=== PATIENT | female | born 1945 | race Caucasian/White ===

== ENCOUNTER 2021-12-06 15:30 | Outpatient (RCR) | payer MEDICARE, BC, SELFPAY ==
--- NOTE | 2022-01-24 15:34 | PC.NURSE ---
Addendum entered by Ngozi Musa, RN 01/25/22 08:35: [employer] Operator called patient and she notes that since Nida will be staying in [place], she will stay here. Original Note: Received a call from [facility] reporting that pt is going to transfer care to Dr. Schwartz for oncology follow-up. They requested that we fax the most recent MD note, we will see that this is done.
--- NOTE | 2022-06-14 14:27 | ONC.NURNOTE ---
Vice Chair received call from Deirdre requested annual follow up appt- made with Dr Roldan per patient Deirdre with questions about labs and plan for next PET Scan medical writer informed Deirdre (per nursing note) that Dr Alva will see Deirdre first and then decide on ordering a PET Scan
== END 2022-09-13 23:59 | disposition home or self-care (01) ==
PROVIDERS: PCP Family Medicine; Visit Provider Orthopaedic Surgery Orthopaedic Surgery of the Spine
DX: R26.89 Other abnormalities of gait and mobility (principal); Z51.89 Encounter for other specified aftercare
CPT/HCPCS: 97110; 97112; 97140; 97162

== ENCOUNTER 2022-04-02 13:30 | Outpatient (RCR) | payer MEDICARE, BC, SELFPAY | END 2022-04-09 16:48 | disposition home or self-care (01) | PROVIDERS: PCP Family Medicine; Visit Provider Family Medicine | DX: Z98.890 Other specified postprocedural states (principal); Z51.89 Encounter for other specified aftercare | CPT/HCPCS: 97110; 97161 ==

== ENCOUNTER 2022-05-04 12:41 | Outpatient (CLI) | payer MEDICARE, BC, SELFPAY ==
--- NOTE | 2022-05-04 13:00 | CRLHL7_ITS ---
For Patients: As a result of the Century Cures Act, medical imaging exams and procedure reports are released immediately into your electronic medical record. You may view this report before your referring provider. If you have questions, please contact your health care provider. INDICATION: Low back pain. Leg pain. TECHNIQUE: Multiplanar multisequence noncontrast MR images acquired through the lumbar spine. COMPARISON: Lumbar spine radiographs 10/02/2021. FINDINGS: Postsurgical changes of posterior instrument fusion from L3 through L5 with interbody fusion at L3-4. Susceptibility artifact secondary to surgical hardware. Exaggerated lumbar lordosis. Mild rightward lumbar curvature. Extensive marrow edema throughout the L5 vertebral body is likely secondary to a mild recent or subacute compression fracture. A fluid-filled cleft is visualized along the L5 superior endplate. No associated retropulsion. Normal conus terminates at L1-2. T12-L1: Mild degeneration. Shallow posterior disc bulge. No spinal canal or neural foraminal narrowing. L1-2: Mild retrolisthesis. Moderate disc degeneration disc height loss. Segmental disc bulge. Mild facet arthropathy. Mild spinal canal narrowing. Ywcc-sf-qfipnkte left and mild right neural foraminal narrowing. L2-3: Postsurgical changes of laminectomy. Moderate disc degeneration. Mild disc height loss. Shallow posterior disc bulge. No spinal canal narrowing. Low-grade neural foraminal narrowing. L3-4: Postsurgical changes spinal fusion and laminectomy. Grade 1 anterolisthesis. No spinal canal narrowing. The left neural foramen is suboptimally evaluated, though there is likely low-grade left neural foraminal narrowing. Mild right neural foraminal narrowing. L4-5: Postsurgical changes of spinal fusion and laminectomy. Moderate spinal canal narrowing. Suggested moderate left without right neural foraminal narrowing. L5-S1: Advanced disc degeneration and disc height loss. Disc degenerate vertebral body edema. Posterior disc bulging and endplate spondylitic ridging. Kqih-vg-vugcczqa facet arthropathy. Moderate facet arthropathy. No spinal canal narrowing. Ggyw-vs-xuqiizsy right without left neural foraminal narrowing. Sacroiliac joint degenerative changes. Multiple T2 hyperintense lesions in the kidneys, most typical for renal cysts. IMPRESSION: 1. Postsurgical changes of posterior instrumented fusion from L3 through L5, interbody fusion at L3-4, and laminectomy from L2-3 through L4-5. 2. Extensive edema throughout the L5 vertebral body is likely secondary to a mild recent or subacute compression fracture. A fluid-filled cleft is visualized along the L5 superior endplate. There is no retropulsion. 3. At L4-5, moderate spinal canal narrowing. Suggested moderate left neural foraminal narrowing. Dictated by Aguila Mcmullen MD @ 05/04/2022 6:40:49 PM (Electronically Signed)
== END 2022-05-04 12:42 | disposition home or self-care (01) ==
LOC: MRI 12:46
PROVIDERS: PCP Family Medicine; Visit Provider Orthopaedic Surgery Orthopaedic Surgery of the Spine
DX: M54.50 Low back pain, unspecified (principal); M51.26 Other intervertebral disc displacement, lumbar region
CPT/HCPCS: 72148

== ENCOUNTER 2022-07-05 13:13 | Outpatient (RCR) | payer MEDICARE, BC, SELFPAY | END 2023-01-01 23:59 | disposition home or self-care (01) | LOC: CCIC 13:13 | PROVIDERS: PCP Family Medicine; Visit Provider Internal Medicine Hematology & Oncology | DX: C50.912 Malignant neoplasm of unspecified site of left female breast (principal); Z17.0 Estrogen receptor positive status [ER+]; Z79.811 Long term (current) use of aromatase inhibitors | CPT/HCPCS: 99212; 99214 ==

== ENCOUNTER 2022-10-31 06:07 | Day surgery (SDC) | payer MEDICARE, BC, SELFPAY ==
[2022-10-31] MEDS: KETOROLAC OPHTH 0.5% 1 DROP EYE-LEFT ×3 (06:25→06:40)
[2022-10-31] MEDS: TETRACAINE 0.5% OPHTH 1 DROP EYE-LEFT ×2 (06:25→06:35)
[2022-10-31 06:32] VITALS: BP 138/73; PULSE 71; RESP 16; TEMP 36.5; O2SAT 95
[2022-10-31] MEDS: SODIUM CHLORIDE 0.9 % (FLUSH) 10 ML SYRINGE IVF (06:35)
[2022-10-31 06:50] VITALS: BMI 39.4
--- NOTE | 2022-10-31 06:59 | SUR.PREOP ---
The eye drops brought by the patient (Ketorolac and Prednisolone) are examined and I have determined they are labeled by the patient's pharmacy for this patient as prescribed by the surgeon. The bottles are intact, recently obtained and appear to be correct.
--- NOTE | 2022-10-31 07:08 | W.ANESCHARGE ---
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
[2022-10-31] MEDS: TETRACAINE 0.5% OPHTH 2 DROP EYE-LEFT (07:19)
[2022-10-31] MEDS: BALANCED SALT IRRIG SOLN 15 ML EYE-LEFT (07:24)
--- NOTE | 2022-10-31 07:29 | W.ANESCHARGE ---
Anesthesia Charges Start Date/Time Anesthesia Start Date: 10/31/22 Anesthesia Start Time: 07:15 Stop Date/Time Anesthesia Stop Date: 10/31/22 Anesthesia Stop Time: 07:51 Summary Extremes of Age - Over 70 or under 1: MDA
[2022-10-31 07:47] VITALS: BP 132/73; PULSE 63; RESP 16; TEMP 36.7; O2SAT 97
--- NOTE | 2022-10-31 10:10 | P.OPTPRC_ITS ---
Procedure Note Date of procedure: 10/31/22 Will [facility] bill your pro fee for this procedure?: Yes Procedure Description: SURGEON: Leilani Hoskins MD PREOPERATIVE DIAGNOSIS: Nuclear sclerotic cataract, left eye. POSTOPERATIVE DIAGNOSIS: Nuclear sclerotic cataract, left eye. NAME OF OPERATION: Phacoemulsification of cataract with posterior chamber intraocular lens implantation in the left eye. ANESTHESIA: Topical. ESTIMATED BLOOD LOSS: Less than 2 cc. COMPLICATIONS: None. PATHOLOGY SPECIMEN: None. INDICATIONS: See consult note for details. The risks, benefits and alternatives of the procedure were explained to the patient, who elected to proceed and signed informed consent to do so. PROCEDURE: The patient was brought to the pre-holding area where the left eye was identified as the operative eye. I placed my initials above this eye. The patient received eye drops consisting of 0.5% tetracaine, 1% tropicamide, 10% phenylephrine, and 0.5% ketorolac. The patient was then brought to the operating room where the left eye was again identified as the operative eye. The eye was prepped with Betadine and draped in the usual sterile ophthalmic fashion. A #15 super-sharp blade was used to create a paracentesis site. 1% non-preserved intracameral lidocaine was injected into the anterior chamber. Endocoat was injected into the anterior chamber. A 2.4 mm keratome was used to create a three-plane self-sealing incision 1 mm anterior to the temporal limbus. A cystotome was used to create an anterior capsular leaflet. The Utrata forceps were used to extend this to form a continuous curvilinear capsulorrhexis. Hydrodissection was performed. The cataract was removed with phacoemulsification using the hzcggu-ltr-vzzxjki technique. The irrigation and aspiration tip was used to remove the remaining cortex. Healon was injected into the capsular bag. An TOMER ZCB00 intraocular lens of 21.5 diopters was injected into the capsular bag. The irrigation and aspiration tip was used to remove the remaining viscoelastic. Balanced salt solution on a cannula was used to hydrate the wound, and the wound was found to be watertight. The pupil was noted to be round. DISPOSITION: The patient was taken to the recovery room and discharged to home in stable condition. The patient was instructed to call me or go to the emergency department with any sudden change, including dramatic loss of vision, severe pain in the eye or eyebrow region, nausea, or vomiting. The patient will follow up in the clinic tomorrow morning.
== END 2022-10-31 08:22 | disposition home or self-care (01) ==
LOC: OR 06:08
PROVIDERS: PCP Family Medicine; Visit Provider Ophthalmology
PROC: (CPT 66984; principal; 2022-10-31 06:15)
DX: H25.12 Age-related nuclear cataract, left eye (principal)
CPT/HCPCS: 66984; 00142; 99100; A9270; J2250; J3010; V2632

== ENCOUNTER 2022-11-14 06:11 | Day surgery (SDC) | payer MEDICARE, BC, SELFPAY ==
--- OUTSIDE RECORDS SUMMARY | 2022-11-14 06:14 | XMS_ITS | Continuity of Care Document ---
Author Name Unknown Organization [facility] Address [address] [place] [address] Phone Care Team Providers Care Brickmason Name Role Phone Maris MELISSA, PhD, Fidel Unavailable Unavai lable Allergies, Adverse Reactions, Alerts Substance Reaction Status Criticality sulfanilamide Active No Information morphine Active No Information Medications Medication Instructions Dosage Effective Dates (start - stop) Status Comments TURMERIC (unknown strength) Not Available - Active ANASTROZOLE (unknown strength) Not Available - Active TYLENOL (unknown strength) Not Available - Active ASPIRIN EC (unknown strength) Not Available - Active HYDROCHLOROTHIAZIDE (unknown strength) Not Available - Active TIROSINT (unknown strength) Not Available - Active VITAMIN D3 (unknown strength) Not Available - Active ALOE VERA (unknown strength) Not Available - Active Procedures Procedure Date Office/Outpatient Visit,Est, Mod 2022 OFFICE/OUTPATIENT VISIT EST Phone Office/Outpatient Visit,Est, Mod 2022 Postop Followup Visit Postop Followup Visit POSTOP FOLLOW-UP VISIT Telephone 2021 POSTOP FOLLOW-UP VISIT Telephone 2021 TLIF - Includes PSF at the same level - PA ESPINOZA FACETC/FRMT ARTHRD LUM 1 PSF - Additional Level(s) - PA Lami, Facetectomy/Foraminotomy, Lumbar ( Stenosis) Lami, Facetectomy/Foraminotomy - Additio nal Level(s) - PA Posterior Instrumentation, 3-6 Segments - PA PEEK/ Cage/ Implant, For Interbody Fusio n - PA TLIF - Includes PSF at the same level Ma ESPINOZA FACETC/FRMT ARTHRD LUM 1 PSF - Additional Level(s) Lami, Facetectomy/Foraminotomy, Lumbar ( Stenosis) Lami, Facetectomy/Foraminotomy - Additio nal Level(s) Posterior Instrumentation, 3-6 Segments PEEK/ Cage/ Implant, For Interbody Fusio n Office/Outpatient Visit,Est, Mod 2021 Office/Outpatient Visit,New, High Office/Outpatient Visit,New, Mod 2012 Advance Directives Directive Yes / No Effective Date File Name No Information Encounters Encounter Description Practice Location Reason(s) For Visit Diagnoses Date Provider Providers Copied on Encounter Office/Outpat ient Visit,Est, Mod [facility], [address] [place] [address], [id number], [place] tel:[phone] [facility] Arthrodesis status 3 Maris Parra. [facility] [place], [address] [place] [address], [address], [place]. tel:[phone] Referring Provider: Jh Jenkins [facility] [address], [address]. tel:[phone] OFFICE/OUTPAT IENT VISIT EST Phone [facility], [address] [place] [address], [id number], [place] tel:[phone] [facility] - [place] No Information 3 Maris Parra. [facility] [place], [address] [place] [address], [id number], [place]. tel:[phone] Referring Provider: Jh Jenkins [employer] [address] [place] [address], [address]. tel:[phone] Office/Outpat ient Visit,Est, Mod [facility], [address], [place], [id number], [place] tel:[phone] [facility] - [facility] Arthrodesis status 3 Maris Parra. [facility], [address], [place], [address], [place]. tel:[phone] Referring Provider: Jh Jenkins [address], [address]. tel:[phone] [facility], [address], [place], [place], [id number], [place] tel:[phone] [facility] No Information 2 Maris Parra. [facility] [place], [address], [place], [address], [place]. [phone] Referring Provider: Jh Jenkins [address], [address]. tel:[phone] [facility], [address], [place], [place], [id number], [place] tel:[phone] [facility] - [facility] Encounter for other specified surgical aftercare 2 Maris Parra. [facility] [place], [address], [place], [address], [place]. tel:[phone] Referring Provider: Jh Jenkins [facility] [address] [place], [address]. tel:[phone] [facility], [address], [place], [place], [id number], [place] tel:[phone] [facility] No Information 2 Morgan Ray. [facility] [place], [address], [place], [id number] , [place]. tel:[phone] Referring Provider: Jh Jenkins [facility] [address] [place], [address]. tel:[phone] [facility], [address] [place] [address], [id number], [place] tel:[phone] [facility] No Information 0 2 Morgan Ray. [facility], [address], [place], [place], [id number] , [place]. [phone] Referring Provider: Jh Jenkins [facility] [address] [place], [address]. tel:[phone] [facility], [address] [place] [address], [id number], [place] tel:[phone] [facility] No Information 2 Morgan Ray. [facility], [address], [place], [place], [id number] , [place]. [phone] Referring Provider: Jh Jenkins [address], [address]. tel:[phone] [facility], [address] [place] [address], [id number], [place] tel:[phone] [facility] No Information 2 Maris Parra. [facility] [place], [address], [place], [address], [place]. [phone] Referring Provider: Jh Jenkins [address], [address]. [phone] Office/Outpat ient Visit,Est, Mod [facility], [address] [place] [address], [id number], [place] tel:[phone] [facility] Spinal stenosis, cervical region Apr-0 2 Maris Parra. [facility] [place], [address], [place], [address], [place]. tel:[phone] Referring Provider: Jh Jenkins [address], [address]. tel:[phone] Office/Outpat ient Visit,New, High [facility], [address] [place] [address], [id number], [place] tel:[phone] [facility] Spinal stenosis, lumbar region with neurogenic claudication Apr-0 2 Mora Cory. [facility], [address], [place], [place], [id number] , [place]. tel:[phone] Referring Provider: Pam Paulson, [facility] [address], [place], [address]. tel:[phone] [facility], [address], [place], [place], [id number], [place] tel:[phone] [facility] Spinal stenosis, lumbar region with neurogenic claudication 2 Maris Fidel. [facility] [place], [address], [place], [address], [place]. tel:[phone] Office/Outpat ient Visit,[facility] [place], [address], [place], [address], [place] tel:[phone] [facility] ARTHRODESIS STATUS 3 Jace Rendon. [facility] [place], [address], [address], [place], [place], [id number] , [place]. tel:[phone] Referring Provider: Albert Mendoza, [facility] [address] , [place], [address]. tel:[phone] Family History Family Member Type Diagnosis Age At Onset Problem (finding) Problem (finding) Problem (finding) Problem (finding) Problem (finding) Problem (finding) Problem (finding) Payers Payer name Insurance type Covered green party ID Authoriza tion(s) [facility] [id number] Medicare [facility] [id number] 1 Social History Type Description Quantity Date Captured Comments Alcohol Use Details Unknown Caffeine Use Details Unknown Tobacco Use Status No Information Smoking Status No Information Sex Female Vital Signs Date / Time: Height Weight BMI Pulse Rate Blood Pressure Temperature Respiratory Rate Body Surface Area Head Circumference Head Circ. Percentile Wt./Renato. Percentile BMI percentile Pulse Ox Inhaled Ox 10:41 AM 62.50 in 105.687 kg (233.00 lbs) 41.9 4 kg/m eter (2) Chief Complaint And Reason For Visit No Information Reason For Referral Reason For Referral No Information History Of Present Illness Encounter Date Complaint History Of Prese nt Illness No Information Functional Status Date Functional Assessmen t No Information Instructions Date Instruction Additional Infor mation No Information Assessments Type Assessment Date No Information Patient Care Teams Name Effective Dates (start - stop) Status Members No Information
--- OUTSIDE RECORDS SUMMARY | 2022-11-14 06:15 | XMS_ITS | Continuity of Care Document ---
Author Name Unknown Organization [facility] Address [address] [place] [address] Phone Care Team Providers Care Director Geothermal Operations Name Role Phone Maris MELISSA, PhD, Fidel [...] Office/Outpat ient Visit,Est, Mod [facility], [address] [place] [address], [id number], [place] tel:[phone] [facility] Arthrodesis status 3 Maris Parra. [facility] [place], [address] [place] [address], [address], [place]. tel:[phone] Referring Provider: [facility] [address], [address]. tel:[phone] OFFICE/OUTPAT IENT VISIT EST Phone [facility], [address] [place] [address], [id number], [place] tel:[phone] [facility] [place] No Information 3 Maris Parra. [facility] [place], [address] [place] [address], [address], [place]. tel:[phone] Referring Provider: Jh Jenkins [employer] [address] [place] [address], [address]. tel:[phone] Office/Outpat ient Visit,Est, Mod [facility], [address], [place], [place], [id number], [place] tel:[phone] [facility] Arthrodesis status 3 Maris Parra. [facility], [address], [place], [address], [place]. tel:[phone] Referring Provider: Jh Jenkins [address], [address]. tel:[phone] [facility], [address], [place], [place], [id number], [place] tel:[phone] [facility] No Information 2 Maris Parra. [facility] [place], [address], [place], [address], [place]. [phone] Referring Provider: Jh Jenkins [address], [address]. tel:[phone] [facility], [address], [place], [place], [id number], [place] tel:[phone] [facility] Encounter for other specified surgical aftercare 2 Maris Parra. [facility] [place], [address], [place], [address], [place]. tel:[phone] Referring Provider: Jh Jenkins [facility] [address] [place], [address]. tel:[phone] [facility], [address], [place], [place], [id number], [place] tel:[phone] [facility] No Information 2 Morgan Ray. [facility] [place], [address], [place], [id number] , [place]. tel:[phone] Referring Provider: Jh Jenkins [facility] [address] [place], [address]. tel:[phone] [facility], [address] [place] [address], [id number], [place] tel:[phone] [facility] No Information 0 2 Morgan Ray. [facility], [address], [place], [place], [id number] , [place]. [phone] Referring Provider: Jh Jenkins [facility] [address] [place], [address]. tel:[phone] [facility], [address] [place] [address], [id number], [place] tel:[phone] [facility] No Information 2 Morgan Ray. [facility], [address], [place], [place], [id number] , [place]. [phone] Referring Provider: Jh Jenkins [address], [address]. tel:[phone] [facility], [address] [place] [address], [id number], [place] tel:[phone] [facility] No Information 2 Maris Parra. [facility] [place], [address], [place], [address], [place]. [phone] Referring Provider: Jh Jenkins [address], [address]. [phone] Office/Outpat ient Visit,Est, Mod [facility], [address] [place] [address], [id number], [place] tel:[phone] [facility] Spinal stenosis, cervical region Apr-0 2 Maris Parra. [facility] [place], [address], [place], [address], [place]. tel:[phone] Referring Provider: Jh Jenkins [address], [address]. tel:[phone] Office/Outpat ient Visit,New, High [facility], [address] [place] [address], [id number], [place] tel:[phone] [facility] Spinal stenosis, lumbar region with neurogenic claudication Apr-0 2 Mora Cory. [facility], [address], [place], [place], [id number] , [place]. tel:[phone] Referring Provider: Pam Paulson, [facility] [address], [place], [address]. tel:[phone] [facility], [address], [place], [place], [id number], [place] tel:[phone] [facility] Spinal stenosis, lumbar region with neurogenic claudication 2 Maris Fidel. [facility] [place], [address], [place], [address], [place]. tel:[phone] Office/Outpat ient Visit,[facility], [facility] Z [facility] [place], [address], [place], [address], [place] tel:[phone] [facility] ARTHRODESIS STATUS 3 Jace Rendon. [facility] [place], [address], [address], [place], [place], [id number] , [place]. tel:[phone] Referring Provider: Albert Mendoza, [facility] [address] , [place], [address]. tel:[phone] Family History Family Member Type Diagnosis Age At Onset Problem (finding) Problem (finding) Problem (finding) Problem (finding) Problem (finding) Problem (finding) Problem (finding) Payers Payer name Insurance type Covered republican ID Authoriza tion(s) [facility] [id number] Medicare [facility] [id number] 1 Social History Type Description Quantity Date [...]
[2022-11-14] MEDS: TETRACAINE 0.5% OPHTH 1 DROP EYE-RIGHT ×2 (06:35→06:42)
[2022-11-14] MEDS: KETOROLAC OPHTH 0.5% 1 DROP EYE-RIGHT ×3 (06:36→06:54)
[2022-11-14 07:00] VITALS: BP 142/75; PULSE 69; RESP 16; TEMP 36.8; O2SAT 96
[2022-11-14] MEDS: TETRACAINE 0.5% OPHTH 2 DROP EYE-RIGHT (07:21)
[2022-11-14] MEDS: BALANCED SALT IRRIG SOLN 15 ML EYE-RIGHT (07:26)
--- NOTE | 2022-11-14 07:27 | P.ANES_ITS ---
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
[2022-11-14 07:45] VITALS: BP 131/75; PULSE 69; RESP 16; TEMP 37; O2SAT 98
[2022-11-14] MEDS: SODIUM CHLORIDE 0.9 % (FLUSH) 10 ML SYRINGE IVF (08:00)
--- NOTE | 2022-11-14 09:26 | P.OPTPRC_ITS ---
Procedure Note Date of procedure: 11/14/22 Will [facility] bill your pro fee for this procedure?: Yes Procedure Description: SURGEON: Leilani Hoskins MD PREOPERATIVE DIAGNOSIS: Nuclear sclerotic cataract, right eye. POSTOPERATIVE DIAGNOSIS: Nuclear sclerotic cataract, right eye. NAME OF OPERATION: Phacoemulsification of cataract with posterior chamber intraocular lens implantation in the right eye. ANESTHESIA: Topical. ESTIMATED BLOOD LOSS: Less than 2 cc. COMPLICATIONS: None. PATHOLOGY SPECIMEN: None. INDICATIONS: See consult note for details. The risks, benefits and alternatives of the procedure were explained to the patient, who elected to proceed and signed informed consent to do so. PROCEDURE: The patient was brought to the pre-holding area where the right eye was identified as the operative eye. I placed my initials above this eye. The patient received eye drops consisting of 0.5% tetracaine, 1% tropicamide, 10% phenylephrine, and 0.5% ketorolac. The patient was then brought to the operating room where the right eye was again identified as the operative eye. The eye was prepped with Betadine and draped in the usual sterile ophthalmic fashion. A #15 super-sharp blade was used to create a paracentesis site. 1% non-preserved intracameral lidocaine was injected into the anterior chamber. Endocoat was injected into the anterior chamber. A 2.4 mm keratome was used to create a three-plane self-sealing incision 1 mm anterior to the temporal limbus. A cystotome was used to create an anterior capsular leaflet. The Utrata forceps were used to extend this to form a continuous curvilinear capsulorrhexis. Hydrodissection was performed. The cataract was removed with phacoemulsification using the booioc-esj-rmajgfk technique. The irrigation and aspiration tip was used to remove the remaining cortex. Healon was injected into the capsular bag. An TOMER ZCB00 intraocular lens of 21.0 diopters was injected into the capsular bag. The irrigation and aspiration tip was used to remove the remaining viscoelastic. Balanced salt solution on a cannula was used to hydrate the wound, and the wound was found to be watertight. The pupil was noted to be round. DISPOSITION: The patient was taken to the recovery room and discharged to home in stable condition. The patient was instructed to call me or go to the emergency department with any sudden change, including dramatic loss of vision, severe pain in the eye or eyebrow region, nausea, or vomiting. The patient will follow up in the clinic tomorrow morning.
--- NOTE | 2022-11-14 11:33 | W.ANESCHARGE ---
Anesthesia Charges Start Date/Time Anesthesia Start Date: 11/14/22 Anesthesia Start Time: 07:15 Stop Date/Time Anesthesia Stop Date: 11/14/22 Anesthesia Stop Time: 07:49 Summary Extremes of Age - Over 70 or under 1: MDA
== END 2022-11-14 08:12 | disposition home or self-care (01) ==
PROVIDERS: PCP Family Medicine; Visit Provider Ophthalmology
PROC: (CPT 66984; principal; 2022-11-14 06:15)
DX: H25.11 Age-related nuclear cataract, right eye (principal)
CPT/HCPCS: 66984; 00142; 99100; A9270; J2250; J3010; V2632

== ENCOUNTER 2023-01-09 13:24 | Outpatient (CLI) | payer MEDICARE, BC, SELFPAY ==
--- OUTSIDE RECORDS SUMMARY | 2023-01-09 13:27 | XMS_ITS | Continuity of Care Document ---
Author Name Unknown Organization [facility] Address [address] [place] [address] Phone Care Team Providers Care Dean Of Graduate Studies Name Role Phone Maris MELISSA, PhD, Fidel [...] Office/Outpat ient Visit,Est, Mod [facility], [address] [place] [address], [id number], [place] tel:[phone] [facility] - [facility] Arthrodesis status 3 Maris Parra. [facility], [address] [place] [address], [address], [place]. tel:[phone] Referring Provider: [facility] [address], [address]. tel:[phone] OFFICE/OUTPAT IENT VISIT EST Phone [facility], [address] [place] [address], [id number], [place] tel:[phone] [facility] - [place] No Information 3 Maris Parra. [facility], [address] [place] [address], [address], [place]. tel:[phone] Referring Provider: Jh Jenkins [facility] [address] [place] [address], [address]. tel:[phone] Office/Outpat ient Visit,Est, Mod [facility], [address], [place], [place], [id number], [place] tel:[phone] [facility] - [facility] Arthrodesis status 3 Maris Parra. [facility], [address], [place], [address], [place]. tel:[phone] Referring Provider: Jh Jenkins [address], [address]. tel:[phone] [facility], [address], [place], [place], [id number], [place] tel:[phone] [facility] No Information 2 Maris Parra. [facility], [address], [place], [address], [place]. [phone] Referring Provider: Jh Jenkins [address], [address]. tel:[phone] [facility], [address], [place], [place], [id number], [place] tel:[phone] [facility] - [facility] Encounter for other specified surgical aftercare 2 Maris Parra. [facility], [address], [place], [address], [place]. tel:[phone] Referring Provider: Jh Jenkins [facility] [address] [place], [address]. tel:[phone] [facility], [address], [place], [place], [id number], [place] tel:[phone] [facility] No Information 2 Morgan Ray. [facility], [address], [place], [id number] , [place]. tel:[phone] Referring Provider: Jh Jenkins [facility] [address] [place], [address]. tel:[phone] [facility], [address] [place] [address], [id number], [place] tel:[phone] [facility] No Information 0 2 Morgan Ray. [facility], [address], [place], [place], [id number] , [place]. [phone] Referring Provider: Jh Jenkins [facility] [address] [place], [address]. tel:[phone] [facility], [address] [place] [address], [id number], [place] tel:[phone] [facility] No Information 2 Morgan Ray. [facility], [address], [place], [place], [id number] , [place]. [phone] Referring Provider: Jh Jenkins [address], [address]. tel:[phone] [facility], [address] [place] [address], [id number], [place] tel:[phone] [facility] No Information 2 Maris Parra. [facility], [address], [place], [address], [place]. [phone] Referring Provider: Jh Jenkins [address], [address]. [phone] Office/Outpat ient Visit,Est, Mod [facility], [address] [place] [address], [id number], [place] tel:[phone] [facility] Spinal stenosis, cervical region Apr-0 2 Maris Parra. [facility], [address], [place], [address], [place]. tel:[phone] Referring Provider: Jh Jenkins [address], [address]. tel:[phone] Office/Outpat ient Visit,New, High [facility], [address] [place] [address], [id number], [place] tel:[phone] [facility] Spinal stenosis, lumbar region with neurogenic claudication Apr-0 2 Mora Cory. [facility], [address], [place], [place], [id number] , [place]. tel:[phone] Referring Provider: Pam Paulson, [facility] [address], [place], [address]. tel:[phone] [facility], [address], [place], [place], [id number], [place] tel:[phone] [facility] Spinal stenosis, lumbar region with neurogenic claudication 2 Maris Fidel. [facility], [address], [place], [address], [place]. tel:[phone] Office/Outpat ient Visit,[facility], [facility], [address], [place], [address], [place] tel:[phone] [facility] ARTHRODESIS STATUS 3 Jace Rendon. [facility], [address], [place], [place], [id number] , [place]. tel:[phone] Referring Provider: Albert Mendoza, [facility] [address] , [place], [address]. tel:[phone] Family History Family Member Type Diagnosis Age At Onset Problem (finding) Problem (finding) Problem (finding) Problem (finding) Problem (finding) Problem (finding) Problem (finding) Payers Payer name Insurance type Covered alliance party ID Authoriza tion(s) [facility] [id number] Medicare [facility] [id number] 1 Social History Type Description Quantity Date [...]
--- NOTE | 2023-01-09 13:30 | CRLHL7_ITS ---
For Patients: As a result of the Century Cures Act, medical imaging exams and procedure reports are released immediately into your electronic medical record. You may view this report before your referring provider. If you have questions, please contact your health care provider. DXA BONE MINERAL DENSITY STUDY Reason for exam: Long-term use aromatase inhibitors. Current height (in): 64. Weight (lb): 225. Menopause age: 41. Ethnicity: White. 1. Have you had a previous hip or vertebral fracture? No. 2. Have you had any fractures during your adult life which did not result from significant trauma (e.g., auto accident)? No. 3. Did either of your parents have a hip fracture? No. 4. Do you smoke? No. 5. Have you ever taken Glucocorticoids? No. 6. Do you have rheumatoid arthritis? No. 7. Do you have secondary osteoporosis? No. 8. Do you drink 3 or more alcoholic drinks per day? No. 9. Are you being treated for osteoporosis? No. 10. Have you ever taken any of the following medications: Actonel, Evista, Fosamax, Miacalcin, Reclast, Boniva, Forteo, HRT (i.e., estrogen/hormone therapy), Protelos, Prolia, Vitamin D, Calcium, other ??? please specify. ANSWER: Yes, vitamin D, HRT, and calcium. 11. Do you have any of the following medical conditions: Anorexia or bulimia, asthma or emphysema, end stage renal disease, hyperparathyroidism, any seizure disorders, cancer, inflammatory bowel diseases, hysterectomy, other ??? please specify. ANSWER: Yes, cancer and hysterectomy. 12. What was your maximum height (inches)? 65.5. 13. Do you perform weight bearing exercise regularly? Yes. 14. Do you regularly consume dairy products? Yes. 15. Do you drink caffeinated beverages? No. If female: 16. At what age did your period start? 12. 17. Are you premenopausal? No. 18. How many full-term pregnancies have you had? 3. 19. Have you ever missed your period for more than 6 months in a row (not including or menopause)? No. TECHNIQUE: Bone mineral density study was performed using the [employer]. FINDINGS: The results of the study expressed as bone mineral density (BMD) are as follows: Neck Left: BMD: 0.856 g/cm2. T-score: 0.1. Z-score: 2.3 Right: BMD: 0.872 g/cm2. T-score: 0.2. Z-score: 2.5 Total Left: BMD: 1.024 g/cm2. T-score: 0.7. Z-score: 2.7 Right: BMD: 1.017 g/cm2. T-score: 0.6. Z-score: 2.6 Radius Left 33%: BMD: 0.595 g/cm2. T-score: -1.7. Z-score: 1.3 IMPRESSION: Osteopenia. *Comparison exams done prior to 07/2019 were performed on different unit, Phantom. COMPARISON: Compared with scan of 03/08/2021, the bone mineral density has increased by 7.1 percent at the hip. Keon Puri M.D. Diagnostic Radiologist [email or web address]/[email or web address]/Dictated by: Keon Puri MD @ 01/11/2023 8:30:00 AM (Electronically Signed)
== END 2023-01-09 13:25 | disposition home or self-care (01) ==
LOC: RAD 13:26
PROVIDERS: PCP Family Medicine; Visit Provider Internal Medicine Hematology & Oncology
DX: M85.89 Other specified disorders of bone density and structure, multiple sites (principal); Z79.811 Long term (current) use of aromatase inhibitors
CPT/HCPCS: 77080

== ENCOUNTER 2023-01-21 14:33 | Outpatient (RCR) | payer MEDICARE, BC, SELFPAY | END 2023-07-20 23:59 | disposition home or self-care (01) | LOC: CCIC 14:33 | PROVIDERS: PCP Family Medicine; Visit Provider Internal Medicine Hematology & Oncology | DX: C50.912 Malignant neoplasm of unspecified site of left female breast (principal); Z17.0 Estrogen receptor positive status [ER+]; Z79.811 Long term (current) use of aromatase inhibitors; M85.88 Other specified disorders of bone density and structure, other site; M48.061 Spinal stenosis, lumbar region without neurogenic claudication; E03.9 Hypothyroidism, unspecified; D35.00 Benign neoplasm of unspecified adrenal gland; L65.9 Nonscarring hair loss, unspecified | CPT/HCPCS: 99212; 99214; 99215 ==

== ENCOUNTER 2024-02-06 10:23 | Outpatient (RCR) | payer MEDICARE, BC, SELFPAY | END 2024-08-04 23:59 | disposition home or self-care (01) | LOC: CCIC 10:23 | PROVIDERS: PCP Family Medicine; Visit Provider Physician Assistant | DX: C50.912 Malignant neoplasm of unspecified site of left female breast (principal); Z17.0 Estrogen receptor positive status [ER+]; Z79.811 Long term (current) use of aromatase inhibitors; Z86.711 Personal history of pulmonary embolism; M85.88 Other specified disorders of bone density and structure, other site; E03.9 Hypothyroidism, unspecified; L65.9 Nonscarring hair loss, unspecified | CPT/HCPCS: 99215; G0463 ==

== ENCOUNTER 2025-02-05 14:30 | Outpatient (CLI) | payer MEDICARE, BC, SELFPAY | END 2025-02-05 14:31 | disposition home or self-care (01) | LOC: CT 14:31 | PROVIDERS: PCP Family Medicine; Visit Provider Orthopaedic Surgery Sports Medicine | DX: M19.011 Primary osteoarthritis, right shoulder (principal) | CPT/HCPCS: 73200 ==